=== PATIENT | female | born 1980 | race American Indian/Alaskan Native ===

== ENCOUNTER 2021-10-16 12:53 | Inpatient (IN) | payer OTHER ==
[2021-10-16] MEDS ORDERED: LACTATED RINGERS 1,000 ML ONE (14:16)
[2021-10-16] MEDS ORDERED: LACTATED RINGERS 1,000 ML IV SCH ×3 (15:00→18:00)
--- NOTE | 2021-10-16 17:05 | Ultrasound Report ---
ULTRASOUND OBSTETRIC LIMITED ULTRASOUND BIOPHYSICAL PROFILE INDICATION / CLINICAL INFORMATION: variable decel. TECHNIQUE: Transabdominal. COMPARISON: None available. FINDINGS: BREATHING MOVEMENT = 2 GROSS BODY MOVEMENT = 2 TONE = 2 QUALITATIVE AMNIOTIC FLUID VOLUME = 0 TOTAL BIOPHYSICAL SCORE = 6/8 HEART RATE (beats per minute): 132 AMNIOTIC FLUID INDEX (cm) = 3.8 (normal = 7-24 cm) PRESENTATION: Cephalic. ADDITIONAL FINDINGS: None. IMPRESSION: 1. Biophysical Score = 6/8 2. Amniotic fluid index is decreased measuring 3.8 cm. Signer Name: Westley Copeland MD Signed: 10/16/2021 5:01 PM Workstation Name: [id number]
[2021-10-16] MEDS ORDERED: ACETAMINOPHEN 325 MG TAB PO PRN (17:10)
[2021-10-16] MEDS ORDERED: CARBOPROST TROMETHAMINE 250 MCG/1 ML INJ IM PRN (17:10)
[2021-10-16] MEDS ORDERED: miSOPROStol 200 MCG TAB PR PRN (17:10)
[2021-10-16] MEDS ORDERED: MINERAL OIL 30 ML ORAL LIQD PO PRN (17:10)
[2021-10-16] MEDS ORDERED: LOPERAMIDE 2 MG CAP PO PRN (17:10)
[2021-10-16] MEDS ORDERED: OXYTOCIN 10 UNIT/1 ML INJ IM PRN (17:10)
[2021-10-16] MEDS ORDERED: fentaNYL 100 MCG/2 ML INJ IV PRN (17:10)
[2021-10-16] MEDS ORDERED: BUTORPHANOL 2 MG/1 ML INJ IV PRN (17:10)
[2021-10-16] MEDS ORDERED: METHYLERGONOVINE MALEATE 0.2 MG/ML VIAL IM PRN (17:10)
[2021-10-16] MEDS ORDERED: TERBUTALINE 1 MG/1 ML INJ SUB-Q PRN (17:10)
[2021-10-16] MEDS ORDERED: ePHEDrine SULFATE 50 MG/1 ML INJ IV PRN (17:10)
--- NOTE | 2021-10-16 17:14 | History and Physical Report ---
History of Present Illness Date of examination: 10/16/21 Date of admission: 10/16/2021 Chief complaint: contractions History of present illness: Patient is a at 39w0d with h/o C/S presenting with complaint of contractions. NOtes they began last noght. OCcuring every 8-10 minutes. +FM. Denies leakage of fluid and vaginal bleeding. Past History Past Medical History: no pertinent history Past Surgical History: tonsillectomy, section NEWSPAPER OR PERIODICAL EDITOR History: syphilis, trichomonas Family/Genetic History: diabetes, heart disease, hypertension, cancer Social history: no significant social history - Obstetrical History Expected Date of Delivery: 10/23/21 Actual Gestation: 39 Week(s) 0 Day(s) : 2 Para: 1 Hx # Term Pregnancies: 1 Number of Pregnancies: 0 Spontaneous Abortions: 0 Induced : 0 Number of Living Children: 1 Medications and Allergies Allergies Allergy/AdvReac Type Severity Reaction Status Date / Time No Known Allergies Allergy Unverified 10/10/21 18:13 Home Medications Medication Instructions Recorded Confirmed Last Taken Type Aspirin [Adult Aspirin] 81 mg PO DAILY 10/10/21 10/10/21 Unknown History Vit-Fe Fumar-FA [ 1 tab PO QDAY 10/10/21 10/10/21 Unknown History Vitamin] Active Meds: Active Medications Lactated Ringer's (Lactated Ringers) 1,000 mls @ 999 mls/hr IV DIRECT ANNIKA Last Admin: 10/16/21 14:26 Dose: 999 mls/hr Review of Systems Genitourinary: contractions - Vital Signs Vital signs: Vital Signs Pulse BP Pulse Ox 105 H 127/68 98 10/16/21 13:17 10/16/21 13:17 10/16/21 13:17 Temp Pulse Resp BP Pulse Ox 98 F 91 H 20 120/70 99 10/16/21 13:35 10/16/21 17:11 10/16/21 13:35 10/16/21 16:17 10/16/21 17:11 - Physical Exam Abdomen: Positive: normal appearance, soft, normal bowel sounds. Negative: distention, tenderness Extremities: - Obstetrical FHR: category 2 FHR comments: spontaneous decelerations x2 Cervical Dilatation: 0 station: -3 Uterine Contraction Frequency (min): 2 contractions noted Uterine Contraction Pattern: Irregular Results All other labs normal. Assessment and Plan Patient with spontaneous decels noted. BPP 6/8 with JADE of 3.8 Discussed will admit to L&D for observation. However, due to staffing issues in the AM will proceed with this evening NPO. Notes recent juice, anesthesia made aware Desires sterilization Procedure risks reviewed and consents signed Type and screen, CBC ordered Ancef 2 g preop antibiotics Will proceed to OR after change of shift - Patient Problems (1) Oligohydramnios Current Visit: Yes Status: Acute (2) 39 weeks gestation of Current Visit: No Status: Acute (3) AMA (advanced maternal age) multigravida 35+ Current Visit: No Status: Acute (4) Previous section Current Visit: No Status: Acute (5) Sterilization Current Visit: No Status: Acute (6) BMI 45.0-49.9, adult Current Visit: No Status: Acute (7) Positive RPR test Current Visit: No Status: Acute
[2021-10-16] MEDS ORDERED: BICITRA ORAL LIQD 30ML PO ONE (17:48)
[2021-10-16] MEDS ORDERED: FAMOTIDINE 20 MG/2 ML INJ IV ONE (17:48)
[2021-10-16] MEDS ORDERED: METOCLOPRAMIDE 10 MG/2 ML INJ IV ONE (17:48)
[2021-10-16] MEDS ORDERED: ceFAZolin/Water 2 GM/20 ML 2 GM/20 ML SYRINGE IV NR (18:00)
[2021-10-16] MEDS ORDERED: OXYTOCIN DRIP 30 UNITS/500 ML BAG IV SCH (18:00)
[2021-10-16] MEDS ORDERED: LIDOCAINE (2%) 20 MG/1 ML VIAL 20 ML MDV INFILTRATI ONE (18:00)
[2021-10-16 18:26] LABS: Hematocrit 40.5 % (30.3-42.9); Hemoglobin 13.2 gm/dl (10.1-14.3); Mean Corpuscular HGB Conc 33 % (30-34); Mean Corpuscular Volume 82 fl (79-97); Red Blood Count 4.93 M/mm3 (3.65-5.03); Red Cell Distribution Width 13.6 % (13.2-15.2)
[2021-10-16 18:30] LABS: Platelet Count 171 K/mm3 (140-440)
[2021-10-16] MEDS ORDERED: ONDANSETRON 4 MG/2 ML INJ ONE (21:34)
[2021-10-16] MEDS ORDERED: dexAMETHasone 20 MG/5 ML VIAL ONE (23:05)
[2021-10-16] MEDS ORDERED: SODIUM CHLORIDE 0.9% 100 ML ONE (23:05)
[2021-10-16] MEDS ORDERED: PHENYLEPHRINE/NS 1,000 MCG/10 ML SYRINGE (OR USE) IV ONE (23:05)
[2021-10-16] MEDS ORDERED: BUPIVACAINE/PF (0.5%) 5 MG/1 ML 30 ML VIAL INFILTRATI ONE (23:05)
[2021-10-16] MEDS ORDERED: KETOROLAC 30 MG/1 ML INJ ONE (23:05)
--- NOTE | 2021-10-16 23:36 | Operative Report ---
Operative Report Operative Report: Date of Procedure: October 16, 2021 Preoperative diagnosis: IUP @39 weeks, oligohydramnios and history of section; desire for permanent sterilization Postoperative diagnosis: same, s/p repeat section and bilateral tubal ligation Procedure: Low transverse section and bilateral salpingectomy Surgeon: Bridgette Hawk MD Bait Packer: JOSTIN Anesthesia: Spinal Complications: none QBL: 202 ml IV Fluids: 1200 ml UOP: 50 ml, clear urine at the end of procedure Indications: Oligohydramnios, history of section Findings: 2640 g male infant in left occiput posterior position cephalic presentation with Apgars 8 & 9 Amniotic fluid meconium stained Fallopian tubes normal in appearance bilaterally Ovaries normal in appearance bilaterally Procedure: The patient was taken to the operating room where epidural anesthesia was found to be adequate. 2 g Ancef was given prior to the procedure. She was then prepared and draped in the usual sterile fashion in the dorsal supine position with a leftward tilt. A Pfannenstiel skin incision was made with the scalpel and carried through to the underlying layer of fascia with the bovie. The fascia was incised in the midline and the incision extended laterally. The superior aspect of the fascial incision was then grasped with the Bandar's clamps, elevated, and the underlying rectus muscles dissected off bluntly and with sharp dissection using curved Valverde scissors. Attention was then turned to the inferior aspect of this incision which, in a similar fashion, was grasped, tented up with the Bandar clamps, and the rectus was dissected off bluntly and with sharp dissection. The rectus muscles were then in the midline, and the peritoneum identified and entered sharply with Metzenbaum scissors. The peritoneal incision was then extended superiorly and inferiorly with good visualization of the bladder. The bladder blade was then inserted and the vesicouterine peritoneum identified, grasped with the pick ups, and entered sharply with the Metzenbaum scissors. This incision was then extended laterally and the bladder flap created digitally. The bladder blade was then reinserted and the lower uterine segment incised in a transverse fashion with the scalpel. The uterine incision was then extended laterally digitally. The bladder blade was then removed and the was delivered via LOP position. The nose and mouth were suctioned with the bulb suction and the cord clamped and cut. The was handed off to the waiting pediatricians.The placenta was then removed; the uterus exteriorized and cleared of all clots and debris. The uterine incision was repaired with 0 vicryl in a running locked fashion to obtain excellent hemostasis. An imbrication layer was done. An area of oozing was noted and a figure of eight suture was placed giving excellent hemostasis. Attention was then turned to the fallopian tubes. The right tube was grasped with Linnette clamps. Nolvia clamps were placed along the mesosalpinx beneath the fallopian tube and the tube was ligated off using the Bovie cautery. Hemostasis was noted. The left tube was grasped and treated in a similar manner. Bleeding was noted along the left tubal stump and a [id number]-[id number] suture using 2-0 Vicryl was placed. Surgicel was placed along the bilateral tubal stumps and mesosalpinx bilaterally. Uterus returned to the abdomen. The rectus muscle was reapproximated with 2-0 vicryl. The fascia was reapproximated with 0 vicryl in a running fashion. Subcutaneous layer reapproximated with interrupted sutures of 2-0 vicryl. The skin was closed with 4-0 monocryl subcuticular stitch and the incision sealed with Dermabond.The patient tolerated the procedure well. Sponge, lap, needle counts correct X 2. The patient was taken to the recovery room in a stable condition.
[2021-10-16] MEDS ORDERED: fentaNYL-BUPIV 2 MCG/ML-0.125% 200 MCG/100 ML BAG EPIDURAL SCH (23:45)
--- NOTE | 2021-10-16 23:51 | Anesthesia Day of Surgery ---
Anesthesia Day of Surgery - Day of Surgery Patient Examined: Yes Patient H&P Reviewed: Yes Patient is NPO: Yes
--- NOTE | 2021-10-16 23:51 | Anesthesia Consultation ---
Anesthesia Consult and Med Hx Date of service: 10/16/21 - Airway Anesthetic Teeth Evaluation: Good ROM Head & Neck: Adequate Mental/Hyoid Distance: Adequate Mallampati Class: Class II Intubation Access Assessment: Good - Pulmonary Exam CTA: Yes - Cardiac Exam Cardiac Exam: RRR - Pre-Operative Health Status ASA Pre-Surgery Classification: ASA2 Proposed Anesthetic Plan: Spinal Nerve Block: TAP - Pulmonary Hx Asthma: No COPD: No Hx Pneumonia: No - Cardiovascular System Hx Hypertension: No - Central Nervous System Hx Seizures: No Hx Psychiatric Problems: No - Endocrine Hx Renal Disease: No Hx End Stage Renal Disease: No Hx Hypothyroidism: No Hx Hyperthyroidism: No - Hematic Hx Anemia: No Hx Sickle Cell Disease: No - Other Systems Hx Alcohol Use: No Hx Cancer: No
[2021-10-16] MEDS ORDERED: ONDANSETRON 4 MG/2 ML INJ IV PRN (23:52)
[2021-10-16] MEDS ORDERED: PROMETHAZINE 25 MG RECT SUPP PR PRN (23:52)
[2021-10-16] MEDS ORDERED: NALOXONE 0.4 MG/1 ML INJ IV PRN (23:52)
[2021-10-16] MEDS ORDERED: PROMETHAZINE 25 MG TAB PO PRN (23:52)
--- NOTE | 2021-10-16 23:52 | Progress Note ---
Spinal Anesthesia Block - Spinal Anesthesia Block Start Time: 23:25 Stop Time: 23:30 Performed by:: LIZA DELEON Procedure: Spinal anesthesia block is being performed for []. H&P, labs have been reviewed. Patient's questions and concerns have been answered. Informed consent has been performed. Timeout has was performed. Patient in sitting position on side of bed. Sterile prep and drape was performed. 3 mL 1% lidocaine skin wheal at L [3]-L [4]. Needle introducer advanced. 24-gauge spinal needle advanced, [+] CSF [-] blood. [-] Spinal dose was given. All needles removed. Patient tolerated procedure well.
--- NOTE | 2021-10-16 23:52 | Post Anesthesia Evaluation ---
- Post Anesthesia Evaluation Patient Participated: Yes Airway Patent: Yes Stable Respiratory Function: Yes Nausea/Vomiting: No Temp > 96.8F: Yes Pain Manageable: Yes Adequeate Hydration: Yes Anesthesia Complications: No Block Receding Appropriately: Yes Patient on Ventilator: No
[2021-10-17] MEDS ORDERED: OXYTOCIN DRIP 30 UNITS/500 ML BAG IV SCH (03:25)
[2021-10-17] MEDS ORDERED: MORPHINE 4 MG/1 ML INJ IV PRN (03:25)
[2021-10-17] MEDS ORDERED: oxyCODONE /ACETAMINOPHEN 5-325MG TAB PO PRN (03:25)
[2021-10-17] MEDS ORDERED: LANOLIN/ZINC/DIMETHICONE (LANSINOH) 7 GM TP PRN (03:25)
[2021-10-17] MEDS ORDERED: NALOXONE 0.4 MG/1 ML INJ IV PRN (03:25)
[2021-10-17] MEDS ORDERED: SIMETHICONE 80 MG CHEW TAB PO PRN (03:25)
[2021-10-17] MEDS ORDERED: ONDANSETRON 4 MG/2 ML INJ IV PRN (03:25)
[2021-10-17] MEDS ORDERED: WITCH HAZEL/ GLYCERIN PAD TP PRN (03:25)
[2021-10-17] MEDS: KETOROLAC 30 MG/1 ML INJ IV SCH ×2 (04:44→11:26)
--- NOTE | 2021-10-17 08:56 | Progress Note ---
Assessment and Plan A: 41 y.o. s/p rpt . ~ 12 hour post op. - Patient Problems (1) delivery delivered Current Visit: Yes Status: Acute Plan to address problem: Continue with care. Advance diet as tolerated. Encourage ambulation. Encourage IS us. Pain medication adjusted. Subjective - Subjective Date of service: 10/17/21 Principal diagnosis: s/p rpt Interval history: Pt has not been out of the bed as of this assessment. Having some pain. Spoke with patient regarding pain management options. RN aware of pain orders. Patient reports: flatus, pain poorly controlled [place]: doing well Objective - Vital Signs Latest vital signs: Vital Signs Temp Pulse Resp BP BP Pulse Ox Pulse Ox 10/17/21 06:40 77 99 10/17/21 06:35 78 99 10/17/21 06:30 79 98 10/17/21 06:27 75 110/58 10/17/21 06:25 82 99 10/17/21 06:20 73 98 10/17/21 06:15 75 97 10/17/21 06:10 75 98 10/17/21 06:05 74 98 10/17/21 06:00 76 97 10/17/21 05:55 75 97 10/17/21 05:50 77 97 10/17/21 05:45 74 96 10/17/21 05:40 75 97 10/17/21 05:35 74 98 10/17/21 05:30 73 97 10/17/21 05:25 72 98 10/17/21 05:20 75 98 10/17/21 05:15 82 98 10/17/21 05:10 77 100 10/17/21 05:05 78 100 10/17/21 05:00 81 100 10/17/21 04:55 77 99 10/17/21 04:50 74 100 10/17/21 04:45 77 99 10/17/21 04:44 20 10/17/21 04:43 98.0 F 10/17/21 04:40 81 100 10/17/21 04:35 75 99 10/17/21 04:30 74 98 10/17/21 04:25 74 98 10/17/21 04:22 70 116/61 10/17/21 04:20 76 98 10/17/21 04:15 74 98 10/17/21 04:10 74 97 10/17/21 04:05 72 98 10/17/21 04:00 75 98 10/17/21 03:55 74 99 10/17/21 03:50 72 99 10/17/21 03:45 76 99 10/17/21 03:40 75 98 10/17/21 03:35 74 99 10/17/21 03:30 75 99 10/17/21 03:25 73 100 10/17/21 03:23 98.4 F 10/17/21 03:22 70 121/61 10/17/21 03:20 74 99 10/17/21 03:15 73 99 10/17/21 03:10 76 98 10/17/21 03:05 73 100 10/17/21 03:00 78 100 10/17/21 02:55 81 100 10/17/21 02:50 79 99 10/17/21 02:45 78 100 10/17/21 02:40 79 99 10/17/21 02:35 83 100 10/17/21 02:30 77 100 10/17/21 02:25 68 100 10/17/21 02:21 83 121/70 10/17/21 02:20 85 100 10/17/21 02:19 80 100 10/17/21 02:14 77 100 10/17/21 02:09 69 100 10/17/21 02:04 81 100 10/17/21 01:59 75 100 10/17/21 01:56 77 91 10/17/21 01:54 77 100 10/17/21 01:51 76 91 10/17/21 01:49 70 99 10/17/21 01:45 71 83 L 10/17/21 01:44 77 100 10/17/21 01:39 77 100 10/17/21 01:37 70 87 10/17/21 01:00 133/72 100 10/17/21 00:30 89 19 124/76 99 10/17/21 00:15 68 15 129/76 98 18 00:00 97.5 F L 67 17 123/74 97 10/16/21 23:55 71 20 127/74 98 10/16/21 23:49 66 20 130/67 98 22 23:44 67 18 120/74 98 10/16/21 23:39 97.1 F L 73 18 114/72 97 10/16/21 21:21 94 H 100 10/16/21 21:16 99 H 99 10/16/21 21:11 87 99 10/16/21 21:06 85 99 10/16/21 21:01 89 100 10/16/21 21:00 98.9 F 10/16/21 20:56 88 100 10/16/21 20:51 84 99 10/16/21 20:46 89 100 10/16/21 20:41 93 H 99 10/16/21 20:36 92 H 99 10/16/21 20:31 86 99 10/16/21 20:26 86 100 10/16/21 20:21 89 100 10/16/21 20:16 96 H 99 10/16/21 20:11 95 H 100 10/16/21 20:06 89 100 10/16/21 19:11 105 H 97 10/16/21 19:07 98 10/16/21 19:06 84 100 10/16/21 19:01 93 H 100 10/16/21 18:56 87 99 10/16/21 18:51 87 99 10/16/21 18:41 95 H 100 10/16/21 18:36 93 H 100 10/16/21 18:31 91 H 100 10/16/21 18:26 93 H 100 10/16/21 18:21 96 H 99 10/16/21 18:16 90 99 10/16/21 18:11 97 H 99 10/16/21 18:06 93 H 99 10/16/21 18:01 99 H 100 10/16/21 17:56 97 H 99 10/16/21 17:51 96 H 98 10/16/21 17:46 94 H 99 10/16/21 17:41 94 H 99 10/16/21 17:36 93 H 100 10/16/21 17:31 97 H 99 10/16/21 17:26 90 100 10/16/21 17:21 87 99 10/16/21 17:16 93 H 99 10/16/21 17:11 91 H 99 10/16/21 17:06 97 H 100 10/16/21 17:01 96 H 99 10/16/21 16:56 94 H 100 10/16/21 16:51 96 H 99 10/16/21 16:46 90 98 10/16/21 16:41 101 H 99 10/16/21 16:32 99 H 99 10/16/21 16:27 98 H 100 10/16/21 16:22 90 99 10/16/21 16:17 92 H 120/70 100 10/16/21 16:12 88 99 10/16/21 16:07 96 H 99 10/16/21 16:02 85 100 10/16/21 15:57 86 100 10/16/21 15:52 90 100 10/16/21 15:47 84 131/71 97 10/16/21 15:42 85 98 10/16/21 15:37 84 99 10/16/21 15:32 82 98 10/16/21 15:27 85 98 10/16/21 15:22 89 99 10/16/21 15:17 83 134/76 99 10/16/21 15:12 87 99 10/16/21 15:07 98 H 97 10/16/21 15:02 81 99 10/16/21 14:57 88 99 10/16/21 14:52 91 H 99 10/16/21 14:47 87 131/75 98 10/16/21 14:42 89 98 10/16/21 14:37 96 H 98 10/16/21 14:32 97 H 99 10/16/21 14:27 101 H 99 10/16/21 14:22 93 H 99 10/16/21 14:17 103 H 136/76 99 10/16/21 14:12 105 H 98 10/16/21 14:07 111 H 98 10/16/21 14:02 102 H 98 10/16/21 13:57 105 H 99 10/16/21 13:52 97 H 98 10/16/21 13:47 104 H 128/78 98 10/16/21 13:42 99 H 99 10/16/21 13:37 107 H 98 10/16/21 13:35 98 F 20 10/16/21 13:32 111 H 98 10/16/21 13:27 101 H 98 10/16/21 13:22 108 H 99 10/16/21 13:17 107 H 127/68 98 Intake and Output 07/17/22 07/18/22 07/18/22 22:59 06:59 14:59 Intake Total 1200 Output Total 300 100 Balance 900 -100 Intake: IV 1200 Output: Urine 300 100 Indwelling 300 100 Other: # Voids Indwelling Catheter 400 - Exam Cardiovascular: Present: Normal S1, Normal S2 Lungs: Present: Clear to auscultation Abdomen: Present: normal appearance, soft Uterus: Present: normal Incision: Present: normal, dry, intact, other (Open to air, no s/sx of infection and no drainage noted. ) - Labs Labs: Abnormal lab results 10/16/21 Range/Units 18:05 MCH 27 L (28-32) pg
[2021-10-17] MEDS: oxyCODONE /ACETAMINOPHEN 5-325MG TAB PO PRN ×2 (09:32→19:31)
[2021-10-17] MEDS: PRENATAL VIT27-FE FUMARATE-FOLIC ACID VIT TAB PO SCH (11:26)
[2021-10-17 12:42] LABS: Hematocrit 39.1 % (30.3-42.9); Hemoglobin 12.9 gm/dl (10.1-14.3)
[2021-10-17] MEDS: IBUPROFEN 800 MG TAB PO SCH (23:52)
[2021-10-18] MEDS: IBUPROFEN 800 MG TAB PO SCH (06:26)
--- NOTE | 2021-10-18 07:56 | Progress Note ---
Assessment and Plan VSSAF, postop H&H 12.9/39.1, incision D&I. lochia scant, fundus firm. Pt desires d/c home tomorrow d/t feeding issues with infant. All questions addressed. - Patient Problems (1) delivery delivered Current Visit: Yes Status: Acute Subjective - Subjective Date of service: 10/18/21 Principal diagnosis: postop day #2 s/p repeat c/s Patient reports: appetite normal, voiding normally, pain well controlled, ambulating normally, no dizzy ambulation, no nauseated [place]: doing well, bottle feeding (concerns over baby's feeding) Objective - Vital Signs Latest vital signs: Vital Signs Temp Pulse Resp BP Pulse Ox Pulse Ox 10/18/21 07:18 18 10/18/21 06:26 20 10/18/21 00:52 18 10/18/21 00:18 98.2 F 84 20 130/76 99 10/17/21 23:52 18 10/17/21 20:31 18 10/17/21 20:15 97.7 F 78 20 134/77 96 10/17/21 19:39 100 10/17/21 19:31 20 10/17/21 16:30 98.0 F 77 20 135/65 100 10/17/21 11:58 97.5 F L 70 20 135/76 100 Intake and Output 10/17/21 10/17/21 10/18/21 15:59 23:59 07:59 Intake Total 240 240 360 Output Total 600 500 100 Balance -360 -260 260 Intake: Oral 240 120 Intake, Free Water 120 360 Output: Urine 600 500 100 Indwelling Catheter 600 Void 500 100 Other: Total, Intake Amount 120 120 Total, Output Amount 600 150 100 # Voids Void 1 1 # Bowel Movements 1 - Exam Breasts: Present: normal Cardiovascular: Present: Regular rate Lungs: Present: Normal air movement Abdomen: Present: normal appearance, soft Vulva: both: normal Uterus: Present: normal, firm, fundal height at umbilicus Extremities: Present: normal Deep Tendon Reflex Grade: Normal +2 Incision: Present: normal, dry, intact
[2021-10-18] MEDS: oxyCODONE /ACETAMINOPHEN 5-325MG TAB PO PRN ×2 (09:12→17:09)
[2021-10-19] MEDS: oxyCODONE /ACETAMINOPHEN 5-325MG TAB PO PRN (00:06)
[2021-10-19] MEDS: IBUPROFEN 800 MG TAB PO SCH ×2 (05:18→11:38)
--- NOTE | 2021-10-19 09:05 | Discharge Summary ---
Providers - Providers Date of Admission: 10/16/21 17:10 Date of discharge: 10/19/21 Attending physician: JORDI BLUNT MD Primary care physician: EQU[employer]MENT RECORDS SUPERVISOR Hospitalization Reason for admission: active labor Delivery: Procedure: repeat low transverse Episiotomy: none Laceration: none Incision: normal, intact Discharge diagnosis: IUP at term delivered baby: male Hospital course: S: Pt doing well. Ambulating, voiding, passing flatus okay. O: VSS. Adequate I&O's. H/H 12.9/39.1 Fundus firm, minimal bleeding noted. Incision open to air, intact, no drainage or s/sx of infection ordered. A: 41 y.o. s/p rpt . In good condition . P: Discharge home with instructions. Pt to come to scheduled incision check in the office in 1 week. Pt to scheduled son's circumcision appointment in the office in 1 week. Condition at discharge: Good Disposition: 01 HOME / SELF CARE / HOMELESS - Discharge Diagnoses (1) delivery delivered Status: Acute Plan - Discharge Medications Prescriptions: Docusate Sodium [Colace] 100 mg PO BID PRN #60 capsule PRN Reason: Constipation Lidocain2.5%/Prilocai2.5% [Emla] 1 applic TP ONCE #1 tube Ibuprofen [Motrin 800 MG tab] 800 mg PO Q8HR PRN #30 tablet PRN Reason: Pain, Moderate (4-6) oxyCODONE /ACETAMINOPHEN [Percocet 5/325] 1 tab PO Q4HR #20 tab - Provider Discharge Summary Activity: routine, no sex for 6 weeks, no heavy lifting 4 weeks, no strenuous exercise Diet: routine Instructions: routine Additional instructions: [] Smoking cessation referral if applicable(refer to patient education folder for contact #) [] Refer to [facility] Booklet Call your doctor immediately for: * Fever > 100.5 * Heavy vaginal bleeding ( >1 pad per hour) * Severe persistent headache * Shortness of breath * Reddened, hot, painful area to leg or breast * Drainage or odor from incision. * Keep incision clean and dry at all times and follow doctor's instructions regarding bathing/showering - Follow up plan Follow up: PRIMARY CARE, [Primary Care Provider] - 7 Days (- ) PAVAN FELDER MD [Staff Physician] - 7 Days (Congratulations on the of your baby boy! - Thank you for allowing us to take care of you. - Please keep you scheduled incision check in the office in 1 week. - Please schedule your son's circumcision appointment in the office in 1 week. - You have been prescribed EMLA cream for your son's circumcision. Please do not use this cream at home, but bring it with you to your son's circumcision appointment. - Should you have any questions or concerns after discharge, please do not hesitate to call us at . )
[2021-10-19] MEDS: PRENATAL VIT27-FE FUMARATE-FOLIC ACID VIT TAB PO SCH (10:04)
[2021-10-19 17:19] VITALS: BP 148/78
== END 2021-10-19 17:00 | disposition home or self-care (01) | DRG 765 ==
LOC: TRG 12:53 → APU 12:53 → TRG 17:10 → APU 17:10 → LD 10-17 02:17 → OB 10-17 07:22
PROVIDERS: ADMIT Student in an Organized Health Care Education/Training Program; ATTEND Student in an Organized Health Care Education/Training Program
PROC: 10D00Z1 Extraction of Products of Conception, Low, Open Approach (ICD-10-PCS; principal; 2021-10-16)
PROC: 0UB70ZZ Excision of Bilateral Fallopian Tubes, Open Approach (ICD-10-PCS; 2021-10-16)
DX: O34.211 Maternal care for low transverse scar from previous cesarean delivery (principal); O41.03X0 Oligohydramnios, third trimester, not applicable or unspecified; Z3A.39 39 weeks gestation of pregnancy; Z37.0 Single live birth; Z20.822 Contact with and (suspected) exposure to COVID-19; Z30.2 Encounter for sterilization
CPT/HCPCS: 31720; 36415; 59025; 76819; 85014; 85018; 85027; 86850; 86900; 86901; 96360; G0378; J3490; J7121; J1100; J1885; J2270; J2370; J2405; J2765; J7120; U0003